=== PATIENT | female | born 1965 | race Caucasian/White ===

== ENCOUNTER 2018-05-06 11:13 | Emergency (ER) | payer OTHER ==
[~2018-05-06] VITALS: Ht 167.6 cm; Wt 101.6 kg
--- NOTE | ~2018-05-06 | EKG ---
[address] [place] [place] [address] ELECTROCARDIOGRAM REPORT Name: DEBBIE CODY Room [facility]: [id number] Admission: 05/06/18 Attend Phys: Discharge: 05/06/18 Date of : 67 Report #: [id number] THIS REPORT FOR: //name// [facility] ED Test Date: 2018-05-06 Test Time: 11:25:51 Pat Name: DEBBIE CODY Department: Room: Gender: F Income Tax Return Preparer: ishmael falk : 1965 Requested By: Katharine Ojeda Order Number: [id number] MD: Kal Levin Measurements Intervals [place] Rate: 68 P: 30 AL: 157 QRS: -16 QRSD: 113 T: 25 QT: 399 QTc: 425 Interpretive Statements Sinus rhythm Borderline intraventricular conduction delay No previous ECG available for comparison Electronically Signed On 05-06-2018 16:38:17 CDT by Kal Levin [email or web address] <ELECTRONICALLY SIGNED> By: Kal Levin MD 05/06/18 1638 1125 1125 MD JASS Ho
[2018-05-06] MEDS ORDERED: UNICOMPLEX M TA1 TA1 PO (11:22)
[2018-05-06 11:44] LABS: URINE BILIRUBIN NEGATIVE (Negative); URINE BLOOD NEGATIVE (Negative); URINE CLARITY CLEAR; URINE COLOR YELLOW; URINE GLUCOSE-RANDOM* NEGATIVE (Negative); URINE KETONES NEGATIVE (Negative); URINE LEUKOCYTES NEGATIVE (Negative); URINE NITRITE NEGATIVE (Negative); URINE PROTEIN (DIPSTICK) NEGATIVE (Negative); URINE SPECIFIC GRAVITY <= 1.005 (1.005-1.035); URINE UROBILINOGEN 0.2 E.U./dl (0.2-1.0)
[2018-05-06 11:52] LABS: ABSOLUTE NEUTROPHILS 5.2 thou/uL (1.4-8.2); BASOPHILS 0.7 % (0.0-2.0); EOSINOPHILS 2.9 % (0.0-3.0); HEMATOCRIT 42.7 % (37.0-47.0); HEMOGLOBIN 14.5 gm/dL (12.0-15.0); MCH 28.9 pg (26.0-34.0); MCV 85.1 fL (80.0-100.0); MONOCYTES 7.3 % (1.0-8.0); PLATELET COUNT 264 thou/uL (150-400); POLYS 64.1 % (36.0-66.0); RBC 5.02 mil/uL (4.20-5.00); RDW 13.2 % (10.5-14.5); WBC 8.1 thou/uL (4.0-11.0)
[2018-05-06 11:57] LABS: ANION GAP 7 mmol/L (7-16); BUN 17 mg/dL (7-18); CALCIUM 9.9 mg/dL (8.5-10.1); CHLORIDE 102 mmol/L (98-107); CO2 29 mmol/L (21-32); CREATININE 0.7 mg/dL (0.6-1.0); GLUCOSE 138 mg/dL (74-106); POTASSIUM 3.6 mmol/L (3.5-5.1); SODIUM 138 mmol/L (136-145)
[2018-05-06 12:06] LABS: TROPONIN-I < 0.04 ng/mL (<0.06)
[2018-05-06 14:28] VITALS: BP 118/69
== END 2018-05-06 14:29 | disposition home or self-care (01) ==
LOC: ER 11:13
PROVIDERS: Emergency Medicine
DX: I10 Essential (primary) hypertension (principal); R42 Dizziness and giddiness; R07.9 Chest pain, unspecified